=== PATIENT | male | born 1975 | race Two or more races ===

== ENCOUNTER 2019-01-23 20:10 | Emergency (ER) | payer SELFPAY ==
[~2019-01-23] VITALS: Ht 170.2 cm; Wt 88.0 kg
[2019-01-23] MEDS ORDERED: KETOROLAC 30MG/ML VIAL IV ONE (23:00)
[2019-01-23 23:16] LABS: HEMATOCRIT 46.2 % (42.0-52.0); HEMOGLOBIN 16.3 g/dL (14.0-18.0); MEAN CORPUSCULAR HEMOGLOBIN 30.9 pg (28.0-32.0); MEAN CORPUSCULAR VOLUME 87.4 fL (80.0-94.0); PLATELET 153 x1000/uL (130-400); RED BLOOD CELL COUNT 5.29 mill/uL (4.7-6.1); RED CELL DISTRIBUTION WIDTH 13.8 % (11.6-14.6)
[2019-01-23 23:23] LABS: CHLORIDE 100 mEq/L (98-107)
[2019-01-24 02:29] VITALS: BP 127/91
== END 2019-01-24 02:49 | disposition home or self-care (01) ==
LOC: ER 22:52
DX: R10.9 Unspecified abdominal pain (principal)
CPT/HCPCS: 36415; 74176; 80053; 85027; 96374; 99284; J1885